=== PATIENT | female | born 1965 | race Caucasian/White ===

== ENCOUNTER 2023-11-27 19:48 | Emergency (ER) | payer OTHER ==
[~2023-11-27] VITALS: Ht 152.4 cm; Wt 80.4 kg
[2023-11-27 19:55] VITALS: BP 151/85; PULSE 68; RESP 17; TEMP 97.7; O2SAT 99
[2023-11-27] MEDS ORDERED: KETOROLAC 30 MG/ML VIAL IM ONE (22:55)
[2023-11-28] MEDS ORDERED: CYCL-711 PO (00:43)
[2023-11-28] MEDS ORDERED: ACET-10509 PO (00:43)
[2023-11-28 01:02] VITALS: BP 121/53; PULSE 60; RESP 17; O2SAT 100
== END 2023-11-28 01:02 | disposition home or self-care (01) ==
LOC: MED 19:48
DX: S16.1XXA Strain of muscle, fascia and tendon at neck level, initial encounter (principal); S20.212A Contusion of left front wall of thorax, initial encounter; V49.88XA Car occupant (driver) (passenger) injured in other specified transport accidents, initial encounter; Y93.89 Activity, other specified; Y92.89 Other specified places as the place of occurrence of the external cause; Y99.8 Other external cause status
CPT/HCPCS: 71250; 72125; 74176; 96372; 99285; J1885